=== PATIENT | female | born 1945 | race Caucasian/White ===

== ENCOUNTER 2017-05-14 20:13 | Emergency (ER) | payer OTHER ==
[2017-05-14 20:39] VITALS: BP 135/76; PULSE 90; TEMP 98.2; BMI 28.3
--- NOTE | 2017-05-14 22:29 | PDOC ---
History of Present Illness - General Chief Complaint: Injury Stated Complaint: FALL INJURY Time Seen by Provider: 05/14/17 22:28 History Source: Patient Exam Limitations: No Limitations - History of Present Illness Initial Comments: 05/14/17 22:43 72y F presents with L knee and ankle pain. Pt notes she slipped on detergent. She fell on her legs, deneies any head injury,m neck pain, back pain, numbnes tingling/weakeness. the pt states she was able to ambulate, and went home to ice it and rest, but pain persisteed so she came to the ED for evaluation. Past History - Past Medical History Allergies/Adverse Reactions: Allergies Allergy/AdvReac Type Severity Reaction Status Date / Time acetaminophen [From Percocet] AdvReac Severe Nausea,vomi Verified 05/14/17 20:34 ting oxycodone HCl [From Percocet] AdvReac Severe Nausea,vomi Verified 05/14/17 20:34 ting Home Medications: Ambulatory Orders Atorvastatin Ca [Lipitor] 20 mg PO HS 05/14/17 Valsartan [Diovan] 160 mg PO DAILY 05/14/17 Anemia: No Asthma: No Cancer: Yes (Left Breast) Cardiac Disorders: No CVA: No COPD: No CHF: No Dementia: No Diabetes: No GI Disorders: No Disorders: No HTN: Yes Hypercholesterolemia: No Liver Disease: No Seizures: No Thyroid Disease: No - Surgical History Abdominal Surgery: No Appendectomy: No Cardiac Surgery: No Cholecystectomy: No Lung Surgery: No Neurologic Surgery: No Orthopedic Surgery: No - Suicide/Smoking/Psychosocial Hx Smoking History: Never smoked Have you smoked in the past 12 months: No If you are a former smoker, when did you quit?: 30 yrs Information on smoking cessation initiated: No Hx Alcohol Use: No Drug/Substance Use Hx: No Substance Use Type: None Hx Substance Use Treatment: No Review of Systems - Review of Systems Able to Perform ROS?: Yes Comments:: 05/14/17 22:45 Musculskelatal - +R knee/ankle pain no reported back pain, joint swelling skin - no reported bruising, erythema, rash neurological: no reported headache, numbness, focal weakness, tingling, ataxia, hematologic: no reported anemia, easy bruising, easy bleeding *Physical Exam - Vital Signs Last Vital Signs Temp Pulse Resp BP Pulse Ox 98.2 F 90 18 135/76 97 05/14/17 20:32 05/14/17 20:32 05/14/17 20:32 05/14/17 20:32 05/14/17 20:32 - Physical Exam Comments: 05/14/17 22:46 GENERAL: The patient is awake, alert, and fully oriented, Nontoxic - in no acute distress. HEAD: Normocephalic, atraumatic. NECK: Normal range of motion, supple BACK: no focal midline tenderness in cervical/thoracic/lumbar spine. EXTREMITIES: +lateral malelus tenderness on L ankle, no foot/mtp tenderness, mild tenderness on R patella, n/v intact Medical Decision Making - Medical Decision Making 05/14/17 22:47 ddx - sprain vs fx xrays to r/o fx tylenol for pain RICE therapy 05/15/17 00:31 xrays neg for fx will dc with pmd fu and RICE therapy reutrn precautions were discussed I discussed the physical exam findings, ancillary test results and final diagnoses with the patient. I answered all of the patient's questions. The patient was satisfied with the care received and felt comfortable with the discharge plan and treatment plan. The patient will call their primary care physician within 24 hours to arrange follow-up and will return to the Emergency Department with any new, persistent or worsening symptoms. *DC/Admit/Observation/Transfer Diagnosis at time of Disposition: Left knee pain Qualifiers: Chronicity: acute Qualified Code(s): M25.562 - Pain in left knee; M25.562 - Pain in left knee Left ankle pain Qualifiers: Chronicity: acute Qualified Code(s): M25.572 - Pain in left ankle and joints of left foot; M25.572 - Pain in left ankle and joints of left foot - Discharge Dispostion Disposition: HOME Condition at time of disposition: Improved Admit: No - Referrals Referrals: Florence Bennett MD [Primary Care Provider] - - Patient Instructions Printed Discharge Instructions: DI for Ankle Pain Additional Instructions: Return to the emergency department immediately with ANY new, persistent or worsening symptoms. Keep your extremity elevated. Apply ice to reduce swelling. Take ibuprofen for pain. Refrained from physical activity until reassessed. You MUST call and follow up with your doctor tomorrow for further evaluation of your symptoms. Results were discussed with you. Please make sure your doctor reviews the results of your emergency evaluation. If you had any xrays during your visit, it was read preliminarily by myself, a Radiologist will review it and if there are any additional findings we will call you. Print Language: POLISH
[2017-05-14] MEDS ORDERED: IBUPROFEN 400 MG TABLET (FP) PO ONE ×2 (22:33→22:44)
[2017-05-15] MEDS ORDERED: ACETAMINOPHEN 325 MG TABLET (FP) PO ONE (00:50)
[2017-05-15] MEDS ORDERED: ACETAMINOPHEN 325 MG TABLET (FP) ONE (01:07)
== END 2017-05-15 01:15 | disposition home or self-care (01) ==
LOC: JERFT 20:13 → JER 20:13
DX: M25.562 Pain in left knee (principal); M25.572 Pain in left ankle and joints of left foot; I10 Essential (primary) hypertension; Z85.3 Personal history of malignant neoplasm of breast
CPT/HCPCS: 73562-TC-LT; 73610-TC-LT; 99281-25

== ENCOUNTER 2017-07-15 19:01 | Emergency (ER) | payer OTHER ==
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
[2017-07-15 20:22] VITALS: BP 159/96; PULSE 77; TEMP 97.6; BMI 28.9
[2017-07-15] MEDS ORDERED: IBUPROFEN 400 MG TABLET (FP) PO ONE (22:36)
[2017-07-15] MEDS ORDERED: IBUPROFEN 600 MG TABLET (FP) PO ONE (23:40)
== END 2017-07-16 00:48 | disposition home or self-care (01) ==
LOC: JER 19:01
DX: M25.511 Pain in right shoulder (principal); M79.605 Pain in left leg; V43.52XA Car driver injured in collision with other type car in traffic accident, initial encounter; Y92.488 Other paved roadways as the place of occurrence of the external cause; Y93.89 Activity, other specified; Y99.8 Other external cause status; I10 Essential (primary) hypertension; E78.5 Hyperlipidemia, unspecified; Z85.3 Personal history of malignant neoplasm of breast; Z90.12 Acquired absence of left breast and nipple
CPT/HCPCS: 73030-TC-RT; 73590-TC-LT; 73610-TC-LT; 73630-TC-LT; 99282-25

== ENCOUNTER 2019-06-24 18:39 | Emergency (ER) | payer OTHER ==
[2019-06-24 18:43] VITALS: BMI 28.7
--- NOTE | 2019-06-24 19:39 | PDOC ---
History of Present Illness - General Chief Complaint: Injury Stated Complaint: FALL, INJURY Time Seen by Provider: 06/24/19 18:48 History Source: Patient, Family - History of Present Illness Initial Comments: 06/24/19 21:09 Ms. Corona is a 74 y/o woman with hx HTN, HLD presenting with facial trauma s/p fall. She reports walking her dog tonight when she missed s step, falling face-first onto the sidewalk. She denies any prodromal palpitations, weakness, confusion, fatigue, vertigo, or lightheadedness, or any symptoms after the fall. She reports that she remembers the fall in its entirety. She denies any headache, or any pain anywhere outside of her face. She reports that it is difficult to breath through her nose due to swelling. She denies any recent fevers, chills, fatigue, night sweats, confusion. She is not on any blood thinners. Past History - Past Medical History Allergies/Adverse Reactions: Allergies Allergy/AdvReac Type Severity Reaction Status Date / Time oxycodone HCl [From Percocet] AdvReac Severe Nausea,vomi Verified 06/24/19 18:43 ting Home Medications: Ambulatory Orders Atorvastatin Ca [Lipitor] 20 mg PO HS 05/14/17 Valsartan [Diovan] 160 mg PO DAILY 05/14/17 Amox-Tr/K Cl [Augmentin - 500Mg Tablet] 1 tab PO BID 5 Days #10 tab 06/24/19 Aspirin 81 mg PO DAILY 06/24/19 Anemia: No Asthma: No Cancer: Yes (Left Breast) Cardiac Disorders: No CVA: No COPD: No CHF: No Dementia: No Diabetes: No GI Disorders: No Disorders: No HTN: Yes Hypercholesterolemia: Yes Liver Disease: No Seizures: No Thyroid Disease: No - Surgical History Abdominal Surgery: No Appendectomy: No Cardiac Surgery: No Cholecystectomy: No Lung Surgery: No Neurologic Surgery: No Orthopedic Surgery: No - Psycho Social/Smoking Cessation Hx Smoking History: Never smoked Have you smoked in the past 12 months: No If you are a former smoker, when did you quit?: 30 yrs Hx Alcohol Use: No Drug/Substance Use Hx: No Substance Use Type: None Hx Substance Use Treatment: No Review of Systems - Review of Systems Able to Perform ROS?: Yes Comments:: 06/24/19 22:36 ROS: GENERAL/CONSTITUTIONAL: No fever or chills. No weakness. HEAD, EYES, EARS, NOSE AND THROAT: Face pain. No change in vision. No ear pain or discharge. No sore throat. CARDIOVASCULAR: No chest pain or shortness of breath RESPIRATORY: No cough, wheezing, or hemoptysis. GASTROINTESTINAL: No nausea, vomiting, diarrhea or constipation. GENITOURINARY: No dysuria, frequency, or change in urination. MUSCULOSKELETAL: No joint or muscle swelling or pain. No neck or back pain. SKIN: No rash NEUROLOGIC: No headache, vertigo, loss of consciousness, or change in strength/ sensation. ENDOCRINE: No increased thirst. No abnormal weight change HEMATOLOGIC/LYMPHATIC: No anemia, easy bleeding, or history of blood clots. ALLERGIC/IMMUNOLOGIC: No hives or skin allergy. *Physical Exam - Vital Signs Last Vital Signs Temp Pulse Resp BP Pulse Ox 98 F 80 18 162/85 100 06/24/19 18:40 06/24/19 18:40 06/24/19 18:40 06/24/19 18:40 06/24/19 18:40 - Physical Exam Comments: 06/24/19 22:36 PE: GENERAL: Awake, alert, and fully oriented, in no acute distress HEAD: Normocephalic. Swelling of nasal bridge. Small bruise noted above R eye. EYES: PERRLA, EOMI, sclera anicteric, conjunctiva clear ENT: Auricles normal inspection, hearing grossly normal, nares patent, oropharynx clear without exudates. Moist mucosa NECK: Normal ROM, supple, no lymphadenopathy, JVD, or masses LUNGS: No distress, speaks full sentences, clear to auscultation bilaterally HEART: Regular rate and rhythm, normal S1 and S2, no murmurs, rubs or gallops, peripheral pulses normal and equal bilaterally. ABDOMEN: Soft, nontender, normoactive bowel sounds. No guarding, no rebound. No masses EXTREMITIES : Normal inspection, Normal range of motion, no edema. No clubbing or cyanosis NEUROLOGICAL: Cranial nerves II through XII grossly intact. Normal speech, normal gait, no focal sensorimotor deficits SKIN: Warm, Dry, normal turgor, no rashes or lesions noted ED Treatment Course - RADIOLOGY Radiology Studies Ordered: Category Date Time Status FACIAL BONES CT W/O CONTRAST [CT] Stat CT Scan 06/24/19 19:[address] WITHOUT CONTRAST [CT] Stat CT Scan 06/24/19 19:35 Ordered Medical Decision Making - Medical Decision Making 06/24/19 21:15 74F with hx HTN, HLD, presenting s/p mechanical fall while walking dog with resultant facial trauma. C-spine cleared via NEXUS criteria. Plan: CT Head w/o contrast CT Facial bones w/o contrast Dispo: Home pending imaging --- CT notable for fracture of nasal bones. Plan for outpatient ENT follow up. Given age, and noted sinus fluid collection on CT, plan for course of Augmentin given possible tract to sinus. Plan for discharge. Discharge - Discharge Information Problems reviewed: Yes Clinical Impression/Diagnosis: Fall Qualifiers: Encounter type: initial encounter Qualified Code(s): W19.XXXA - Unspecified fall, initial encounter Nasal bone fracture Qualifiers: Encounter type: initial encounter Fracture type: closed Qualified Code(s): S02.2XXA - Fracture of nasal bones, initial encounter for closed fracture Condition: Stable Disposition: HOME - Admission No - Additional Discharge Information Prescriptions: Amox-Tr/K Cl [Augmentin - 500Mg Tablet] 1 tab PO BID 5 Days #10 tab - Follow up/Referral Referrals: Florence Bennett MD [Primary Care Provider] - Clyde Abad MD [Staff Physician] - - Patient Discharge Instructions Patient Printed Discharge Instructions: DI for Nose Fracture, How to Prevent Falls Additional Instructions: You were seen in the ER after a fall. Your CT showed nasal bone fractures. Please take ibuprofen over the counter as needed for pain and swelling. Please keep the scrapes clean while they heal. Apply over the counter antibiotic ointment such as bacitracin as needed to prevent infection. We are referring to you an Ear Nose and Throat (ENT) doctor. Please follow up with them as soon as possible, within 3 days. We are prescribing you an antibiotic, please take it twice daily for five days with food. Please return to the ER if you develop weakness, confusion, high fevers, if your pain worsens, or if you develop any other symptoms that are concerning to you. - Post Discharge Activity
--- NOTE | 2019-06-24 21:20 | PDOC ---
Documentation entered by Julio Melton SCRIBE, acting as scribe for Zac Mcneill MD. Zac Mcneill MD: This documentation has been prepared by the Geronimo cox Daniel, SCRIBE, under my direction and personally reviewed by me in its entirety. I confirm that the documentation accurately reflects all work, treatment, procedures, and medical decision making performed by me. Attending Attestation - Resident Resident Name: Ananth Palumbo - ED Attending Attestation I have performed the following: I have examined & evaluated the patient, The case was reviewed & discussed with the resident, I agree w/resident's findings & plan, Exceptions are as noted - HPI HPI: 06/24/19 19:16 The patient is a 74 year old female with a past medical history of HTN and HLD here today for evaluation s/p fall. The patient reports that she was walking her dog when she missed the curb and fell forward. She denies any loss of consciousness and remembers the whole event. She states that she fell on face and currently complains of facial pain. Patient denies headache, lightheadedness. Denies fever, chills. Denies chest pain, shortness of breath. Denies neurologic symptoms. Denies any pain with eye movement. Allergies: oxycodone HCL - Physicial Exam PE: 06/24/19 19:18 Vitals: Triage vital signs reviewed General Appearance: No acute distress, well nourished, well developed Head: Atraumatic Eyes: Pupils equal reactive round, extraocular movement intact Ears: TM's normal bilaterally Throat: mucous membranes moist Neck: Supple; No nuchal rigidity Chest Wall: Nontender Cardiac: Regular rate and rhythm, no murmurs, no rubs, no gallops Lungs: Clear to auscultation bilateral, good air movement bilaterally Extremities: Full range of motion to all extremities, no cyanosis, clubbing, or edema Skin: +bruising over whole face, most prominently over nose and below right eye. +abrasions to right hand. Warm and dry, no rashes or lesions, no rash, no petechiae Neuro: AOX3; Cranial Nerves 2-12 grossly intact, Strength intact to all extremities, Sensation intact to all extremities Psych: Normal mood, normal affect - Medical Decision Making 06/24/19 21:20 Mechanical fall with facial trauma head CT facial CT ordered tetanus up-to-date No acute intracranial head injury noted nasal bone fracture noted with likely opacified sinus patient placed on 5-day course of Augmentin and instructed to follow-up with ENT this week Findings, need for follow-up and strict return instructions discussed with patient.
[2019-06-24 21:46] VITALS: BP 173/95; PULSE 78; TEMP 97.9
== END 2019-06-24 22:01 | disposition home or self-care (01) ==
LOC: JER 18:39
DX: S02.2XXA Fracture of nasal bones, initial encounter for closed fracture (principal); W18.39XA Other fall on same level, initial encounter; Y93.K1 Activity, walking an animal; Y92.480 Sidewalk as the place of occurrence of the external cause; Y99.8 Other external cause status; I10 Essential (primary) hypertension; E78.5 Hyperlipidemia, unspecified; Z85.3 Personal history of malignant neoplasm of breast
CPT/HCPCS: 70450-TC; 70486-TC; 99283-25

== ENCOUNTER 2020-08-07 18:13 | Emergency (ER) | payer OTHER ==
--- OUTSIDE RECORDS SUMMARY | 2020-08-07 18:23 | XMS ---
:1945 Author Organization [facility] Support Name Relationship Address Phone RE Unavailable Unavailable Unavailable LOIS GOLDSTEIN [address] [facility] [address] Re-disclosure Warning The records that you are about to access may contain information from federally- assisted alcohol or drug abuse programs. If such information is present, then the following federally mandated warning applies: This information has been disclosed to you from records protected by federal confidentiality rules (42 CFR part 2). The federal rules prohibit you from making any further disclosure of this information unless further disclosure is expressly permitted by the written consent of the person to whom it pertains or as otherwise permitted by 42 CFR part 2. A general authorization for the release of medical or other information is NOT sufficient for this purpose. The Federal rules restrict any use of the information to criminally investigate or prosecute any alcohol or drug abuse patient.The records that you are about to access may contain highly sensitive health information, the redisclosure of which is protected by Article 27-F of the [facility] Public Health law. If you continue you may haveaccess to information: Regarding HIV / AIDS; Provided by facilities licensed or operated by the [facility] Office of Mental Health; or Provided by the [facility] Office for People With Developmental Disabilities. If such information is present, then the following [facility] mandated warning applies: This information has been disclosed to you from confidential records which are protected by state law. State law prohibits you from making any further disclosure of this information without the specific written consent of the person to whom it pertains, or as otherwise permitted by law. Any unauthorized further disclosure in violation of state law may result in a fine or detention sentence or both. A general authorization for the release of medical or other information is NOT sufficient authorization for further disclosure. Insurance Providers Payer name Policy type / Policy ID Covered Covered republican's Policy Plan Coverage type republican ID relationship to [employer] Information khan
[2020-08-07 18:30] VITALS: BP 137/81; PULSE 85; TEMP 98.8; BMI 28.1
--- NOTE | 2020-08-07 18:58 | PDOC ---
History of Present Illness - General Chief Complaint: Shortness of Breath Stated Complaint: COUGH Time Seen by Provider: 08/07/20 18:52 - History of Present Illness Initial Comments: 08/07/20 18:54 Complaint: Cough HPI: Complains of cough productive of yellowish and greenish sputum for approximately 1-1/2 weeks. Cough is worse at night, sometimes intractable, which causes her to feel short of breath. There is the no shortness of breath with exertion this she is having a coughing spell. Review of systems: No fever/chills, body aches, headache, chest pain, abdominal pain, nausea, vomiting, diarrhea, visual or focal neurologic symptoms, unsteadiness of gait. Remainder of systems reviewed and negative Past medical history: Hypertension and elevated cholesterol, controlled with medication. Social history: Patient's has Covid, is hospitalized at [facility], on oxygen, not intubated. Patient had a Covid test 1 month ago, but not since her has been ill. No tobacco alcohol or drugs Family history: Reviewed and noncontributory Physical exam: Alert and oriented well-developed well-nourished no acute distress other than occasional intractable cough. Cooperative Afebrile, vital signs normal including oxygen saturation of 98% on room air HEENT clear Neck supple without bruit mass or nodes Lungs clear, full breath sounds bilaterally, no wheezes rales or rhonchi, although deep inspiration does precipitate paroxysms of coughing Abdomen benign Neurological intact Extremities no CCE Skin clear, no rash, adequate turgor and wet mucous membranes Impression: Persistent cough, shortness of breath with coughing, no other flulike symptoms including fever or body aches. Significant exposure to Covid. Plan: Chest x-ray and further evaluation. Past History - Medical History Allergies/Adverse Reactions: Allergies Allergy/AdvReac Type Severity Reaction Status Date / Time oxycodone HCl [From Percocet] AdvReac Severe Nausea,vomi Verified 08/07/20 19:25 ting Home Medications: Ambulatory Orders Atorvastatin Ca [Lipitor] 20 mg PO HS 05/14/17 Valsartan [Diovan] 160 mg PO DAILY 05/14/17 Aspirin 81 mg PO DAILY 06/24/19 Anemia: No Asthma: No Cancer: Yes (Left Breast) Cardiac Disorders: No CVA: No COPD: No CHF: No Dementia: No Diabetes: No GI Disorders: No Disorders: No HTN: Yes Hypercholesterolemia: Yes Liver Disease: No Seizures: No Thyroid Disease: No - Surgical History Abdominal Surgery: No Appendectomy: No Cardiac Surgery: No Cholecystectomy: No Lung Surgery: No Neurologic Surgery: No Orthopedic Surgery: No - Immunization History Immunization Up to Date: Yes - Psycho-Social/Smoking History Smoking History: Never smoked Have you smoked in the past 12 months: No If you are a former smoker, when did you quit?: 30 yrs Information on smoking cessation initiated: No - Substance Abuse Hx (Audit-C & DAST Scrn) How often the patient has a drink containing alcohol: Never Score: In Men: 4 or > Positive; In Women: 3 or > Positive: 0 Screen Result (Pos requires Nsg. Audit-10AR): Negative In the last yr the pt used illegal drug/Rx for NonMed reason: No Score: Yes response is considered Positive: 0 Screen Result (Positive result requires Nsg. DAST-10): Negative *Physical Exam - Vital Signs Last Vital Signs Temp Pulse Resp BP Pulse Ox 98.8 F 85 18 137/81 98 08/07/20 18:16 08/07/20 18:16 08/07/20 18:16 08/07/20 18:16 08/07/20 18:16 Medical Decision Making - Medical Decision Making 08/09/20 23:17 Patient appears clinically stable with good O2 sat and no tachypnea or dyspnea. However, is hospitalized with COVID-19 and she most likely has been exposed, her symptoms could be from Covid or an ordinary bronchitis. Chest x-ray is pending. Clinically and hemodynamically stable. Signed out to Dr. Domingo at 7 PM pending results of chest x-ray and further medical evaluation. Discharge - Discharge Information Problems reviewed: Yes Clinical Impression/Diagnosis: Cough Condition: Stable Disposition: HOME - Admission No - Follow up/Referral - Patient Discharge Instructions Additional Instructions: You can use [id number] cough medication for the cough. I recommend the purchase and use of a pulse oximeter and using it to monitor your oxygen levels if your oxygen levels get below 93% you should come in for reevaluation. Pulse oximeter can be purchased from any pharmacy [id number] and does not require a prescription. Return to the emergency department immediately with ANY new, persistent or worsening symptoms. Continue any medications as previously prescribed by your physician. You should follow up with your primary doctor as soon as possible regarding today's emergency department visit. . Please make sure your doctor reviews the results of your emergency evaluation. Thank you for coming to the Emergency Department today for your care. It was a pleasure to see you today. Please note that your evaluation is INCOMPLETE until you follow-up with your doctor. - Post Discharge Activity
--- NOTE | 2020-08-07 19:29 | PDOC ---
*Physical Exam - Vital Signs Last Vital Signs Temp Pulse Resp BP Pulse Ox 98.8 F 85 18 137/81 98 08/07/20 18:16 08/07/20 18:16 08/07/20 18:16 08/07/20 18:16 08/07/20 18:16 ED Progress Note - Progress Note Progress Note: 08/07/20 19:25 Care of this patient was transferred to me from Dr. Zeeshan hutson at 1900 hrs. This is a 75-year-old female who comes in complaining of cough. Patient is concerned as her is admitted to [facility] with positive Covid and is on high flow oxygen. Patient otherwise denies any fevers, chills, nausea vomiting diarrhea or abdominal pain. Patient had an x-ray that was pending it is now done and read by me as no acute infiltrate. Patient had a Covid swab done and she refused influenza testing. Patient discharged well follow-up as needed. Discharge - Discharge Information Problems reviewed: Yes Clinical Impression/Diagnosis: Cough Condition: Stable Disposition: HOME - Admission No - Follow up/Referral - Patient Discharge Instructions Additional Instructions: You can use [id number] cough medication for the cough. I recommend the purchase and use of a pulse oximeter and using it to monitor your oxygen levels if your oxygen levels get below 93% you should come in for reevaluation. Pulse oximeter can be purchased from any pharmacy [id number] and does not require a prescription. Return to the emergency department immediately with ANY new, persistent or worsening symptoms. Continue any medications as previously prescribed by your physician. You should follow up with your primary doctor as soon as possible regarding today's emergency department visit. . Please make sure your doctor reviews the results of your emergency evaluation. Thank you for coming to the Emergency Department today for your care. It was a pleasure to see you today. Please note that your evaluation is INCOMPLETE until you follow-up with your doctor. - Post Discharge Activity
== END 2020-08-07 19:36 | disposition home or self-care (01) ==
LOC: FER 18:13
DX: R05 Cough (principal)
CPT/HCPCS: 71045-TC-FY; 99284-25; C9803; U0003

== ENCOUNTER 2021-12-15 12:09 | Emergency (ER) | payer OTHER ==
[2021-12-15 12:32] VITALS: BP 168/82; PULSE 70; TEMP 97.5; BMI 28.3
== END 2021-12-15 14:01 | disposition home or self-care (01) ==
LOC: JER 12:09
DX: S09.90XA Unspecified injury of head, initial encounter (principal); S00.03XA Contusion of scalp, initial encounter; W01.198A Fall on same level from slipping, tripping and stumbling with subsequent striking against other object, initial encounter
CPT/HCPCS: 70450-TC; 72125-TC; 99284-25

== ENCOUNTER 2021-12-26 19:19 | Emergency (ER) | payer OTHER ==
[2021-12-26 19:27] VITALS: BP 180/96; PULSE 71; TEMP 98; BMI 28.3
[2021-12-26] MEDS ORDERED: CYCLOBENZAPRINE HCL 10 MG TABLET (FP) PO ONE (20:33)
[2021-12-26] MEDS ORDERED: KETOROLAC TROMETHAMINE 30 MG/1 ML VIAL IM ONE (20:33)
[2021-12-26] MEDS ORDERED: CYCLOBENZAPRINE HCL 10 MG TABLET (FP) ONE (20:37)
[2021-12-26] MEDS ORDERED: KETOROLAC TROMETHAMINE 30 MG/1 ML VIAL ONE (20:37)
== END 2021-12-26 22:33 | disposition home or self-care (01) ==
LOC: JERFT 19:19
PROC: 3E0233Z Introduction of Anti-inflammatory into Muscle, Percutaneous Approach (ICD-10-PCS; principal; 2021-12-26)
DX: M54.42 Lumbago with sciatica, left side (principal)
CPT/HCPCS: 73502-TC-LT-FY; 99284-25

== ENCOUNTER 2022-12-19 20:20 | Emergency (ER) | payer OTHER ==
[2022-12-19 20:32] VITALS: BP 150/85; PULSE 74; RESP 20; TEMP 97.6; BMI 28.9
== END 2022-12-19 23:13 | disposition home or self-care (01) ==
LOC: JERFT 20:20 → JER 20:20 → JERFT 23:13
DX: R21 Rash and other nonspecific skin eruption (principal); T65.91XA Toxic effect of unspecified substance, accidental (unintentional), initial encounter; T20.27XA Burn of second degree of neck, initial encounter; T21.23XA Burn of second degree of upper back, initial encounter
CPT/HCPCS: 99282-25